=== PATIENT | male | born 1955 | race Hispanic/Latino ===

== ENCOUNTER → 2018-12-27 | Outpatient (CLI) | payer MEDICARE, OTHER ==
--- NOTE | 2018-12-28 16:07 | US ---
EXAM DESCRIPTION: Soft Tissue,Abdomen: ULTRASOUND. CLINICAL HISTORY: 63 years Male INGUINAL HERNIA, LEFT COMPARISON: None Available. TECHNIQUE: Transcutaneous scanning: Duncan-scale and Doppler modes. FINDINGS: Palpable mass left of inguinal canal. Heterogeneous tissue in the superior left inguinal canal. Tissue measures 6.3 x 5.0 cm. No peristalsis or vascular flow. No dominant solid mass. No distinct cyst. No large calcifications.. IMPRESSION: Mesenteric hernia in the superior left inguinal canal . No bowel peristalsis. No fluid collection. Electronically signed by: Cayetano Dunaway MD 12/28/2018 4:05 PM CDT
== END ==
LOC: US 10:34
PROVIDERS: ATTEND Nurse Practitioner Family
DX: K40.90 Unilateral inguinal hernia, without obstruction or gangrene, not specified as recurrent (principal)